=== PATIENT | male | born 1995 | race African-American/Black ===

== ENCOUNTER 2020-02-07 04:58 | Emergency (ER) | payer MEDICAID ==
[~2020-02-07] VITALS: Ht 182.9 cm; Wt 57.2 kg
[2020-02-07 05:05] VITALS: Ht 182.9 cm; Wt 57.2 kg
[2020-02-07 05:55] VITALS: BP 131/82
== END 2020-02-07 05:55 | disposition home or self-care (01) ==
LOC: ED 04:58
DX: G89.29 Other chronic pain (principal); M79.652 Pain in left thigh